=== PATIENT | male | born 1960 | race Caucasian/White ===

== ENCOUNTER → 2019-05-15 | Outpatient (CLI) | payer BC ==
--- NOTE | 2019-05-16 09:36 | US ---
EXAMINATION TYPE: US carotid duplex BILAT DATE OF EXAM: 05/15/2019 COMPARISON: NONE CLINICAL HISTORY: slurred speech R47.81, dizziness R42. EXAM MEASUREMENTS: RIGHT: Peak Systolic Velocity (PSV) cm/sec ----- Right CCA: 78.7cm ----- Right ICA: 117.3 ----- Right ECA: 135.0 ICA/CCA ratio: 1.5 RIGHT: End Diastole cm/sec ----- Right CCA: 20.4 ----- Right ICA: 28.4 ----- Right ECA: 20.4 LEFT: Peak Systolic Velocity (PSV) cm/sec ----- Left CCA: 90.7 ----- Left ICA: 76.4 ----- Left ECA: 121.1 ICA/CCA ratio: 0.8 LEFT: End Diastole cm/sec ----- Left CCA: 29.9 ----- Left ICA: 30.5 ----- Left ECA: 17.4 VERTEBRALS (direction of flow): Right Vertebral: Antegrade Left Vertebral: Antegrade Rhythm: Normal Mild to moderate plaque seen bilaterally, no significant velocity elevations. IMPRESSION: No evidence for hemodynamically significant stenosis. Criteria for Assigning % of Stenosis / Diameter reduction (Estimation based on the indirect measurements of the internal carotid artery velocities (ICA PSV). 1. Normal (no stenosis)=ICA PSV < 125 cm/s: ratio < 2.0: ICA EDV<40 cm/s. 2. Less than 50% stenosis=ICA PSV < 125 cm/s: ratio < 2.0: ICA EDV<40 cm/s. 3. 50 to 69% stenosis=ICA PSV of 125 to 230 cm/s: ration 2.0 ? 4.0: ICA EDV 40-100 cm/s. 4. Greater than 70% stenosis to near occlusion= ICA PSV > 230 cm/s: ratio > 4.0: ICA EDV > 100 cm/s. 5. Near occlusion= ICA PSV velocities may be low or undetectable: variable ratio and ICA EDV. 6. Total occlusion=unable to detect flow.
== END | disposition home or self-care (01) ==
LOC: RADUSWWP 16:42
PROVIDERS: ATTEND Family Medicine
DX: R47.81 Slurred speech (principal)
CPT/HCPCS: 93880

== ENCOUNTER → 2019-05-18 | Outpatient (CLI) | payer BC ==
--- NOTE | 2019-05-18 21:44 | MR ---
MR brain without contrast HISTORY: Slurred speech and bilateral hearing loss Multiplanar multisequence imaging through the brain No comparisons There is no restricted diffusion. There is no hemorrhage or hydrocephalus. Brain signal is maintained . There are normal vascular flow voids. There is extensive abnormal increased signal on T2-weighted s equences throughout the mastoid air cells bilaterally, there is mucoperiosteal thickening present wit hin the maxillary sinuses, ethmoid air cells and frontal sinus. Cerebellopontine angles, corpus callo sum, cervical medullary junction are normal. There is a partially empty sella. The orbits show symmet lindsey appearance. IMPRESSION: Bilateral mastoiditis suspected, temporal bone CT may be of benefit. Sinus disease. No ev ident subacute ischemia.
== END | disposition home or self-care (01) ==
LOC: RADMRIMAIN 20:44
PROVIDERS: ATTEND Family Medicine
DX: R47.81 Slurred speech (principal)
CPT/HCPCS: 70551

== ENCOUNTER → 2019-06-01 | Outpatient (CLI) | payer BC ==
[2019-06-01 16:13] LABS: HCT 47.2 % (39.0-53.0); HGB 15.7 gm/dL (13.0-17.5); MCH 30.2 pg (25.0-35.0); MCHC 33.4 g/dL (31.0-37.0); MCV 90.7 fL (80.0-100.0); Mean Platelet Volume 7.4; Platelet Count 190 k/uL (150-450); RDW 12.7 % (11.5-15.5); WBC 8.8 k/uL (3.8-10.6)
[2019-06-01 16:21] LABS: African American GFR (CKD) >90 (>60 ml/min/1.73 sqM); Anion Gap 8 mmol/L; Blood Urea Nitrogen 13 mg/dL (9-20); Carbon Dioxide 24 mmol/L (22-30); Chloride 108 mmol/L (98-107); Non-African American GFR(CKD) >90 (>60 ml/min/1.73 sqM); Potassium 4.6 mmol/L (3.5-5.1); Sodium 140 mmol/L (137-145)
== END | disposition home or self-care (01) ==
LOC: LABPAT 15:28
PROVIDERS: ATTEND Internal Medicine Cardiovascular Disease
DX: Z01.812 Encounter for preprocedural laboratory examination (principal); R07.2 Precordial pain
CPT/HCPCS: 36415; 80051; 82565; 84520; 85027

== ENCOUNTER 2019-06-10 08:45 | Day surgery (SDC) | payer BC ==
[2019-06-03 14:01] VITALS: BMI 26.9
[~2019-06-10 08:45] MED LIST: ALPRAZolam 0.25 MG TAB PO PRN; ALPRAZolam 0.5 MG TAB PO PRN; ASPIRIN 325 MG TAB PO STA; ATORVASTATIN 80 MG TAB PO STA; NITROGLYCERIN SL TABS 0.4 MG TAB SUBLINGUAL PRN; SODIUM CHLORIDE 0.9% 1,000 ML in EMPTY BAG 1 BAG IV ONE
[2019-06-10] MEDS ORDERED: SODIUM CHLORIDE 0.9% 1,000 ML IV ONE (09:30)
[2019-06-10] MEDS ORDERED: LIDOCAINE 1% INJ 10MG/ML (20 ML MDV) ONE ×2 (11:18→14:03)
[2019-06-10] MEDS ORDERED: LIDOCAINE 1% INJ 10MG/ML (20 ML MDV) SQ ONE (11:35)
[2019-06-10] MEDS ORDERED: HEPARIN SODIUM 1,000 UN/ML (10ML VL) ONE (12:01)
[2019-06-10] MEDS ORDERED: IOPAMIDOL-370 125ML BTL INJ ONE (12:14)
--- NOTE | 2019-06-10 13:06 | CC ---
CARDIAC CATHETERIZATION REPORT INDICATION: Chest pain with abnormal stress test. PROCEDURE NOTE: After obtaining informed consent, left heart catheterization and coronary angiogram were performed via the right femoral artery using standard Saad catheters. Patient tolerated the procedure well without any obvious immediate complications. Patient received moderate conscious sedation and total sedation time was 22 minutes. FINDINGS: 1. HEMODYNAMICS: Left ventricular end-diastolic pressure is 8 to 12 mm there is no significant gradient across the aortic valve. 2. LEFT VENTRICULOGRAM: Left ventriculogram is not performed. 3. ANGIOGRAPHIC DATA. LEFT MAIN CORONARY ARTERY: Left main coronary artery is a normal-sized vessel and is free of stenosis. It divides into left anterior descending coronary artery and circumflex coronary artery. LAD shows irregular ectatic and aneurysmal changes in the proximal part and just distal to it. There is a focal 80%-90% stenosis. Circumflex coronary artery is a nondominant vessel with a large caliber vessel that has a focal 70% stenosis. Both the vessels appear calcified. Right coronary artery is a large dominant vessel that shows a moderate area of atherosclerotic plaque in the midportion and distally there is a focal 90% stenosis. CONCLUSION: Three-vessel coronary artery disease as described above. PLAN: I reviewed angiographic data with the patient and talked to him about his treatment options including surgical and catheter-based revascularization and optimal medical therapy. The pros and cons of each of these approaches has been discussed at length with the patient, who has not received any sedation. Understanding all the issues, he decided to undergo multivessel angioplasty. Patient will have an LAD stent and RCA stent and will be treated with medications for the circumflex lesion and if necessary, bring him back and do angioplasty of the circumflex coronary artery. MMODL / IJN: [id number] /
--- NOTE | 2019-06-10 13:12 | LTR ---
DATE OF SERVICE: 06/10/2019 RE: Dionisio Fairchild Dear Padmaja; I performed cardiac catheterization on Dionisio Fairchild. A detailed catheterization note is enclosed for your records. In brief, cardiac catheterization revealed redding 3 vessel coronary artery disease and patient will undergo multivessel angioplasty. Thank you for giving us the privilege to participate in this pleasant gentleman. Sincerely yours, MD DEYSI Weaver / MCKAY: [id number] /
[2019-06-10] MEDS ORDERED: BIVALIRUDIN BOLUS 250 MG/50 ML IV ONE (14:20)
[2019-06-10] MEDS ORDERED: CLOPIDOGREL 75 MG TAB ONE (14:21)
[2019-06-10] MEDS ORDERED: CLOPIDOGREL 75 MG TAB PO ONE (14:22)
[2019-06-10] MEDS ORDERED: BIVALIRUDIN 250 MG in SODIUM CHLORIDE 0.9% 50 ML IV ONE (14:23)
[2019-06-10] MEDS ORDERED: IV FLUID CONTINUATION 800 ML IV ONE (14:23)
[2019-06-10] MEDS: NITROGLYCERIN 1000MCG/10ML SYRINGE INTRACORON ONE ×3 (14:32→15:03)
[2019-06-10] MEDS ORDERED: IOPAMIDOL-370 100ML BTL INJ ONE ×2 (14:50→15:04)
[2019-06-10] MEDS ORDERED: ATROPINE SULFATE 0.1 MG/ML 10ML SYRINGE IV PRN (15:38)
[2019-06-10] MEDS ORDERED: ZOLPIDEM 5 MG TAB PO PRN (15:38)
[2019-06-10] MEDS ORDERED: MAG HYDROX/AL HYDROX/SIMETH 30 ML CUP PO PRN (15:38)
[2019-06-10] MEDS ORDERED: RX INFO: IV CONTRAST WAS GIVEN 1 EACH MISC MISCELLANE PRN (15:38)
[2019-06-10] MEDS ORDERED: ATORVASTATIN 80 MG TAB PO SCH (21:00)
[2019-06-10] MEDS ORDERED: METOPROLOL TARTRATE 25 MG TAB PO SCH (21:00)
--- NOTE | 2019-06-10 22:15 | PTCA ---
PERCUTANEOUSTRANS CORORONARY ANGIOGRAPHY DATE OF SERVICE: 06/10/2019 PERFORMING PHYSICIAN: Mookie Arnett MD. PROCEDURES PERFORMED: 1. Successful stenting of the distal right coronary artery using a 3.5 x 15 mm Xience drug-eluting stent with excellent angiographic results and reduction of stenosis from 95% to 0%. 2. Successful stenting of the mid right coronary artery using a 4.0 x 18 mm Xience drug-eluting stent with excellent angiographic results and reduction of stenosis from 70% to 0%. 3. Successful stenting of the mid left anterior descending artery using a 3.5 x 23 mm Xience drug-eluting stent with excellent angiographic results and reduction of stenosis from 80% to 0%. INDICATION: This is a 59-year-old gentleman with hypertension and dyslipidemia who sees Dr. Mckay in the office on a regular basis. He was experiencing symptoms of chest discomfort with exertion concerning for angina. He underwent heart catheterization earlier today by Dr. Mckay and that revealed severe triple-vessel coronary artery disease with focal lesions in the RCA and LAD and lesion in the left circumflex as well. The decision was made for percutaneous coronary intervention. APPROACH: Right common femoral artery. COMPLICATIONS: None. LEVEL OF SEDATION: Moderate, with sedation length of 48 minutes. PROCEDURE DESCRIPTION: Please refer to diagnostic heart catheterization that was performed by Dr. Mckay earlier today. Anticoagulation was initiated using Angiomax after I did change my short sheath for a new short sheath. After that, I did engage the right coronary artery using JR4 guide. The RCA was wired using a run-through wire. After that I did balloon angioplasty of the RCA in the distal portion using 3.0 x 12 mm balloon which was inflated under 14 atmospheres for 20 seconds and subsequently I deployed 3.5 x 15 mm Xience WILL where the stent was positioned under fluoroscopy guidance and deployed under 16 atmospheres for 20 seconds. The following angiogram showed good angiographic results. For the mid RCA, I did direct stenting using 4.0 x 18 mm Xience WILL where the stent was positioned again under fluoroscopy guidance and deployed under 16 atmospheres for 20 seconds. I post dilated the stent using 4 mm NC balloon which was inflated under 20 atmospheres for 15 seconds. The following angiogram showed excellent angiographic results and the procedure on the RCA was completed. I did after that engage the left main using JL4 guide. I did wire it using the same run-through wire I used for the RCA. After that I did balloon angioplasty using 2.5 x 12 mm balloon which was inflated under 18 atmospheres for 20 seconds. After that, I deployed a 3.5 x 23 mm Xience WILL where the stent was positioned under fluoroscopy guidance and deployed under 16 atmospheres for 20 seconds. I did after that post dilate the stent using 3.5 mm NC balloon which was inflated under 18 atmospheres for 20 seconds with the following angiogram showing excellent angiographic results and the procedure was completed without any complication. POST-PROCEDURE MANAGEMENT: 1. Dual anti-platelet therapy. 2. Risk factor modifications. 3. Follow up with the patient. MMODL / IJN: [id number] /
[2019-06-11 01:09] VITALS: RESP 18
[2019-06-11 06:11] VITALS: TEMP 98.7
[2019-06-11 07:19] LABS: Basophils % (A) 0 %; Eosinophils # (A) 0.3 k/uL (0-0.7); Eosinophils % (A) 3 %; HCT 44.9 % (39.0-53.0); HGB 15.4 gm/dL (13.0-17.5); Lymphocytes # (A) 2.1 k/uL (1.0-4.8); Lymphocytes % (A) 22 %; MCH 30.7 pg (25.0-35.0); MCHC 34.4 g/dL (31.0-37.0); Mean Platelet Volume 7.4; Monocytes # (A) 0.5 k/uL (0-1.0); Monocytes % (A) 5 %; Neutrophils # (A) 6.5 k/uL (1.3-7.7); Neutrophils % (A) 68 %; Platelet Count 181 k/uL (150-450); RBC 5.04 m/uL (4.30-5.90); RDW 12.7 % (11.5-15.5); WBC 9.6 k/uL (3.8-10.6)
[2019-06-11 07:29] LABS: African American GFR (CKD) >90 (>60 ml/min/1.73 sqM); Anion Gap 7 mmol/L; Blood Urea Nitrogen 12 mg/dL (9-20); Calcium 8.7 mg/dL (8.4-10.2); Carbon Dioxide 24 mmol/L (22-30); Chloride 107 mmol/L (98-107); Glucose 90 mg/dL (74-99); Non-African American GFR(CKD) >90 (>60 ml/min/1.73 sqM); Potassium 4.2 mmol/L (3.5-5.1); Sodium 138 mmol/L (137-145)
[2019-06-11 08:33] VITALS: BP 140/87; PULSE 80
[2019-06-11] MEDS: SODIUM CHLORIDE 0.9% 1,000 ML IV SCH (08:55)
[2019-06-11] MEDS ORDERED: ASPIRIN 325 MG TAB PO SCH (09:00)
[2019-06-11] MEDS ORDERED: LISINOPRIL 20 MG TAB PO SCH (09:00)
--- NOTE | 2019-06-11 14:43 | P.DS ---
Providers Attending physician: Sidney Mckay Consults: 06/10/19 15:38 Consult Physician Routine Consulting Provider: [facility] Consult Reason/Comments: Post Interventional patient Do you want consulting provider notified?: Already Contacted Primary care physician: Padmaja Juarez [facility] Course: This is a pleasant 59-year-old male who came to the hospital electively yesterday for cardiac catheterization secondary to chest pain with abnormal stress test. Stress test revealed triple-vessel coronary artery disease with a focal lesion of the LAD, 70% stenosis of the circumflex and 90% plaque in the mid RCA and 90% distally. He underwent PCI of the LAD and RCA per Dr. Arnett. He was initiated on dual anti-platelet therapy. Seen and examined this morning resting comfortably in bed in no acute distress. He denies chest pain, shortness of breath, palpitations or dizziness. Blood pressure 140/87 heart rate 80 afebrile and maintaining oxygen saturation on room air. Laboratory data reviewed, WBC 9.6, hgb 15.4, plt 181, sodium 138, potassium 4.2 and creatinine 0.93. Repeat EKG this morning reveals sinus mechanism with non-specific ST abnormalities. No acute changes. GENERAL: Well-appearing, well-nourished and in no acute distress. NECK: Supple without JVD or thyromegaly. LUNGS: Breath sounds clear to auscultation bilaterally. Respiration equal and unlabored. No wheezes, rales or rhonchi. HEART: Regular rate and rhythm without murmurs, rubs or gallops. S1 and S2 heard. EXTREMITIES: Normal range of motion, no edema. No clubbing or cyanosis. Peripheral pulses intact. Right femoral access site clean, dry and intact. No hematoma, bleeding, ecchymosis or tenderness. ASSESSMENT Multi-vessel coronary artery disease s/p PCI RCA and LAD Hypertension Dyslipidemia Hypertension Chronic nicotine dependence PLAN Recommend increasing atorvastatin to 80 mg daily. Initiated on plavix 75 mg daily and lopressor 25 mg BID. Continue aspirin 81 mg daily and enalapril 10 mg BID. Follow up in the office with Dr. Mckay next week. Nurse Practitioner note has been reviewed, I agree with a documented findings and plan of care. Patient was seen and examined. Patient Condition at Discharge: Stable Plan - Discharge Summary Discharge Rx Participant: Yes New Discharge Prescriptions: New Atorvastatin [Lipitor] 80 mg PO HS #90 tab Metoprolol Tartrate [Lopressor] 25 mg PO BID #180 tab Clopidogrel [Plavix] 75 mg PO DAILY #90 tab Continue Cholecalciferol [Vitamin D3 (25 Mcg = 1000 Iu)] 2,000 unit PO DAILY Enalapril [Vasotec] 10 mg PO BID Aspirin [Adult Low Dose Aspirin EC] 81 mg PO DAILY Discontinued Atorvastatin Calcium [Lipitor] 20 mg PO DAILY Discharge Medication List Aspirin [Adult Low Dose Aspirin EC] 81 mg PO DAILY 06/03/19 [History] Cholecalciferol [Vitamin D3 (25 Mcg = 1000 Iu)] 2,000 unit PO DAILY 06/03/19 [History] Enalapril [Vasotec] 10 mg PO BID 06/03/19 [History] Atorvastatin [Lipitor] 80 mg PO HS #90 tab 06/11/19 [Rx] Clopidogrel [Plavix] 75 mg PO DAILY #90 tab 06/11/19 [Rx] Metoprolol Tartrate [Lopressor] 25 mg PO BID #180 tab 06/11/19 [Rx] Follow up Appointment(s)/Referral(s): Sidney Mckay MD [STAFF PHYSICIAN] - 06/16/19 4:15 pm (Saturday -previously scheduled appointment) Patient Instructions/Handouts: *[facility] - After Heart Catheterization - [facility] Instructions, Left Heart Catheterization (DC) Discharge Disposition: HOME SELF-CARE
[2019-06-11] MEDS ORDERED: CLOPIDOGREL 75 MG TAB PO SCH (15:39)
== END 2019-06-11 08:45 | disposition home or self-care (01) ==
LOC: CATHCVL 08:45 → 3SCARD 16:56 → CATHCVL 06-11 08:45
PROVIDERS: ATTEND Internal Medicine Cardiovascular Disease
DX: I25.110 Atherosclerotic heart disease of native coronary artery with unstable angina pectoris (principal); I25.41 Coronary artery aneurysm; I10 Essential (primary) hypertension; E78.5 Hyperlipidemia, unspecified; F17.210 Nicotine dependence, cigarettes, uncomplicated; I73.9 Peripheral vascular disease, unspecified; Z82.49 Family history of ischemic heart disease and other diseases of the circulatory system; Z79.899 Other long term (current) drug therapy; Z79.82 Long term (current) use of aspirin; Z88.8 Allergy status to other drugs, medicaments and biological substances
CPT/HCPCS: 80048; 85025; 93458; 92928 ×2; C9600; C1769 ×3; C1887 ×2; C1725 ×4; C1894; C1874; J2001; J0583; Q9967 ×2

== ENCOUNTER → 2019-08-15 | Outpatient (CLI) | payer BC ==
[2019-08-15 18:40] LABS: Chol/HDL Ratio 4.67; LDL Cholesterol,Calculated 80.6 mg/dL (0.0-131.0); VLDL Calculation 29.4 mg/dL (5.00-40.00)
== END | disposition home or self-care (01) ==
LOC: LABWHC1 08:52
PROVIDERS: ATTEND Internal Medicine Cardiovascular Disease
DX: E78.2 Mixed hyperlipidemia (principal)
CPT/HCPCS: 36415; 80061; 84450; 84460

== ENCOUNTER → 2020-05-05 | Outpatient (CLI) | payer BC ==
--- NOTE | 2020-05-05 16:51 | MR ---
MRI CERVICAL SPINE: CLINICAL HISTORY: Headaches with neck pain causing pain or numbness into left arm per patient. TECHNIQUE: Multiplanar, multisequence imaging of the cervical spine is performed without IV contrast. COMPARISON: None. FINDINGS: Sagittal images of the cervical spine show the craniocervical junction to appear within nor mal limits. The cervical and upper thoracic spinal cord is normal in caliber and signal. There is sl ight grade 1 anterolisthesis of C2 on C3 and C3 on C4. There is grade 1 retrolisthesis C5 on C6. The vertebral body heights are normal. Moderate to advanced disc space narrowing with heterogeneous Soraida c type I endplate changes and moderate spurring C5-C6 level. Axial images at C2-C3 level shows uncovertebral facet degenerative changes bilaterally causing modera te right and mild left-sided neural foraminal narrowing. Axial images at C3-C4 level show uncovertebral facet degenerative changes bilaterally causing moderat e right and mild left-sided neural foraminal narrowing. Axial images at C4-C5 levels are broad-based posterior disc protrusion effacing anterior thecal sac, there is mild to moderate bilateral neural foraminal narrowing noted. Axial images at C5-C6 levels. Spondylolisthesis with broad-based posterior disc protrusion effacing a nterior thecal sac of the ventral surface of spinal cord with moderate to severe bilateral neural for aminal narrowing. Axial images at C6-C7 levels a left paracentral/foraminal disc protrusion effacing anterolateral thec al sac and causing moderate left-sided neural foraminal narrowing. Axial images at C7-T1 level appear within normal limits. IMPRESSION: Multilevel degenerative changes greatest at C5-C6 level as detailed above.
== END | disposition home or self-care (01) ==
LOC: RADMRIMAIN 16:03
PROVIDERS: ATTEND Family Medicine
DX: M47.892 Other spondylosis, cervical region (principal)
CPT/HCPCS: 72141

== ENCOUNTER → 2020-08-08 | Outpatient (CLI) | payer BC ==
[2020-08-08 15:13] LABS: African American GFR (CKD) >90 (>60 ml/min/1.73 sqM); Anion Gap 10 mmol/L; Blood Urea Nitrogen 16 mg/dL (9-20); Carbon Dioxide 27 mmol/L (22-30); Chloride 102 mmol/L (98-107); Non-African American GFR(CKD) >90 (>60 ml/min/1.73 sqM); Potassium 4.2 mmol/L (3.5-5.1); Sodium 139 mmol/L (137-145)
[2020-08-08 15:23] LABS: HCT 48.3 % (39.0-53.0); HGB 16.8 gm/dL (13.0-17.5); MCH 30.8 pg (25.0-35.0); MCHC 34.7 g/dL (31.0-37.0); MCV 88.8 fL (80.0-100.0); Mean Platelet Volume 8.9; Platelet Count 173 k/uL (150-450); RBC 5.44 m/uL (4.30-5.90); RDW 12.8 % (11.5-15.5)
== END | disposition home or self-care (01) ==
LOC: LABPAT 14:07
PROVIDERS: ATTEND Internal Medicine Cardiovascular Disease
DX: Z01.818 Encounter for other preprocedural examination (principal); I20.0 Unstable angina
CPT/HCPCS: 36415; 80051; 82565; 84520; 85027

== ENCOUNTER 2020-08-09 07:32 | Day surgery (SDC) | payer BC ==
[2020-08-09] MEDS ORDERED: ASPIRIN 81 MG ONE (07:40)
[2020-08-09] MEDS ORDERED: LIDOCAINE 1% INJ 10MG/ML (20 ML MDV) ONE (07:46)
[2020-08-09] MEDS ORDERED: fentaNYL (PF) 50 MCG/ML 2 ML AMP ONE (08:04)
[2020-08-09] MEDS ORDERED: LIDOCAINE 1% INJ 10MG/ML (20 ML MDV) SQ ONE (08:11)
[2020-08-09] MEDS ORDERED: HEPARIN SODIUM 1,000 UN/ML (10ML VL) ONE (08:47)
[2020-08-09] MEDS: HEPARIN SODIUM 1,000 UN/ML (10ML VL) IV ONE ×2 (08:49→09:01)
[2020-08-09] MEDS ORDERED: IOPAMIDOL-370 125ML BTL INJ ONE ×2 (09:20→09:38)
[2020-08-09] MEDS ORDERED: NITROGLYCERIN 1000MCG/10ML SYRINGE INTRACORON ONE (09:32)
--- NOTE | 2020-08-09 09:38 | CC ---
CARDIAC CATHETERIZATION REPORT INDICATION: Unstable angina. PROCEDURE NOTE: After obtaining informed consent, left heart catheterization and coronary angiogram are performed via the right femoral artery using standard Saad catheters. The patient tolerated the procedure well without any obvious immediate complications. The patient received moderate conscious sedation. Total sedation time was 15 minutes. FINDINGS: 1. HEMODYNAMICS: Left ventricular end-diastolic pressure is 10 mm. There is no significant gradient across the aortic valve. 2. LEFT VENTRICULOGRAM: Left ventriculogram is not performed. 3. ANGIOGRAPHIC DATA: Left Main Coronary Artery: Left main coronary artery is a normal-sized vessel and is free of stenosis. Divides into left anterior descending coronary artery and circumflex coronary artery. LAD was previously stented in the midportion. There is some in-stent restenosis that extends all the way to the proximal part that involves the mid LAD, but there is an area of stenosis even in the proximal LAD. The hemodynamic significance of which is unclear. Circumflex coronary artery is a large codominant system that shows an 80% to 90% stenosis just before the bifurcation. Right coronary artery is a large vessel that was previously stented in the proximal to midportion. The stent is patent. The PDA shows a 50% to 60% stenosis in the ostial portion which remains unchanged. CONCLUSION: Three-vessel coronary artery disease with patent stent in the mid LAD with proximal LAD stenosis. Focal significant stenosis involving circumflex coronary artery and moderate disease involving the ostial portion of the PDA. PLAN: I am going to review angiographic data with Dr. Lanier the available vaccine manager. He will assess the hemodynamic significance of the LAD and if that is significant refer patient to surgery. If it is not, then he will undergo angioplasty of circumflex coronary artery. MMODL / IJN: [id number] /
--- NOTE | 2020-08-09 09:38 | LTR ---
August 09, 2020 Re: Dionisio Fairchild Dear Padmaja: I performed cardiac catheterization on Dionisio Fairchild. A detailed catheterization note is enclosed records. In brief, the cardiac catheterization revealed three-vessel coronary artery disease with significant focal stenosis in circumflex coronary artery with a moderate stenosis involving LAD. We are going to assess the hemodynamic significance of the LAD and if it is not significant then patient will undergo angioplasty of circumflex coronary artery and if the LAD lesion is significant, we may refer him to bypass. Sincerely, MD DEYSI Weaver / MCKAY: [id number] /
[2020-08-09] MEDS ORDERED: NITROGLYCERIN SL TABS 0.4 MG TAB SUBLINGUAL PRN (09:59)
[2020-08-09] MEDS ORDERED: ZOLPIDEM 5 MG TAB PO PRN (09:59)
[2020-08-09] MEDS ORDERED: RX INFO: IV CONTRAST WAS GIVEN 1 EACH MISC MISCELLANE PRN (09:59)
[2020-08-09] MEDS ORDERED: ATROPINE SULFATE 0.1 MG/ML 10ML SYRINGE IV PRN (09:59)
[2020-08-09] MEDS ORDERED: MAG HYDROX/AL HYDROX/SIMETH 30 ML CUP PO PRN (09:59)
--- NOTE | 2020-08-09 09:59 | P.PRCINT ---
Percutaneous Coronary Int. - Percutaneous Coronary Intervention Percutaneous Coronary Intervention: PROCEDURES PERFORMED: Selective left coronary angiography, successful PCI of mid circumflex with a 3.5 x 18 mm Xience WILL, postdilated proximally with a 4.5 x 8 mm noncompliant balloon, Angio-Seal. INDICATION: Unstable angina HISTORY: Patient is a pleasant 60-year-old male with history of hypertension, hyperlipidemia and prior PCI of the [place] LAD and RCA in 2019 who presents with typical anginal type symptoms new in onset over the last week and therefore patient had a diagnostic catheterization performed by my partner and I was asked to evaluate for possible PCI. Patient did have mild to moderate proximal LAD 50% stenosis as well as 50-60% ostial PDA stenosis and a circumflex 80-90% stenosis. PROCEDURE: After the risks, benefits and alternatives of the above mentioned procedure explained in detail with the patient, informed consent was obtained. The decision was made to iFR the LAD as this may increase his Syntax score. A 6Fr sheath had been placed in the right femoral artery using modified Seldinger technique. A 6Fr CLS 4.5 guide catheter was used to engage the left main. A 0.014 iFR guide wire was advanced into the left main, normalized then easily placed in the mid LAD. iFR was performed and was negative at 0.96. Next the wire was advanced into the distal OM1 without difficulty. The lesion was predilated with a 3.0 x 12mm balloon. Next, a 3.5 x 18 mm Xience WILL was advanced with some difficulty secondary to tortuosity requiring the help of a Minor for support. The stent was deployed. The proximal stent was then post dilated with a 4.5 x 8 mm NC balloon. Preintervention there was a 85 % stenosis and SANTOSH 3 flow and post intervention there was 0% residual stenosis and SANTOSH 3 flow without evidence of dissection. The wire was removed and final angiograms were taken. The right radial sheath was removed and a TR band was placed with hemostasis achieved. The patient tolerated the procedure well. Patient was transported back to the post catheterization holding area in stable condition. Conscious Sedation: Patient was monitored under the direct supervision of vision of myself for conscious sedation using Versed and fentanyl for a total duration of 51 minutes HEMODYNAMICS: Aorta: 136/82 SELECTIVE CORONARY ARTERIOGRAPHY: LEFT MAIN: The left main is a large caliber vessel which bifurcates into the LAD and circumflex. There is no significant stenosis. LEFT ANTERIOR DESCENDING CORONARY ARTERY: LAD is a large caliber vessel which wraps around to the apex. There is a proximal LAD 50% stenosis followed by a mid LAD stents with mild 10% in-stent stenosis. iFR of proximal LAD negative at 0.96 LEFT CIRCUMFLEX CORONARY ARTERY: Left circumflex is a large caliber vessel with a mid 70% stenosis followed by a more focal 85% stenosis just before the bifurca tion into to moderate caliber OM branches. RIGHT CORONARY ARTERY: RCA , see diagnostic heart catheterization report FINAL IMPRESSION: 1. Successful PCI of mid circumflex with a 3.5 x 18 mm Xience WILL, postdilated proximally with a 4.5 x 8 mm noncompliant balloon 2. Negative iFR of proximal LAD lesion PLAN: 1. Aggressive risk factor modification per most recent ACC/AHA guidelines. 2. Follow-up in the office in 1-[address] Mckay. 3. Dual antiplatelets for 12 months.
[2020-08-09] MEDS ORDERED: SODIUM CHLORIDE 0.9% 1,000 ML IV SCH (10:00)
[2020-08-09 14:01] VITALS: BMI 26.8
[2020-08-09 22:09] VITALS: RESP 18
[2020-08-10 07:50] LABS: African American GFR (CKD) >90 (>60 ml/min/1.73 sqM); Non-African American GFR(CKD) >90 (>60 ml/min/1.73 sqM)
[2020-08-10] MEDS ORDERED: ASPIRIN 81 MG PO SCH (09:00)
--- NOTE | 2020-08-10 09:22 | DS ---
DISCHARGE SUMMARY DATE OF ADMISSION: 08/09/2020. DATE OF DISCHARGE: 08/10/2020. PROCEDURES PERFORMED: 1. Left heart catheterization. 2. Angioplasty with stent placement of circumflex coronary artery. 3. FFR of the LAD. CLINICAL COURSE: This is a 60-year-old gentleman with history of known coronary artery disease, status post prior angioplasty of LAD and right coronary artery, who presented to me with symptoms of unstable angina with EKG changes. Due to this, I advised him to undergo cardiac catheterization. His cardiac catheterization revealed a patent stent within the LAD and right coronary arteries with nonsignificant proximal LAD disease with an FFR and critical stenosis involving circumflex coronary artery. He went on to have angioplasty with stent placement of the same. This morning, patient is doing well and is free of symptoms. He denies any chest pain, difficulty in breathing, palpitations, dizziness or syncope. PHYSICAL EXAMINATION: On exam, comfortable at rest. Vital signs are stable. Chest exam reveals good air entry bilaterally. Heart exam reveals first and second heart sounds. No gallop. Examination of extremities did not reveal any edema. Peripheral pulses are felt. Groin is free of bleeding, bruit, hematoma. Foot pulses are intact. LABS: Creatinine is normal at 0.8. DISCHARGE MEDICATIONS: He will go home on aspirin, Plavix, Lipitor, Vasotec, Lopressor, and sublingual nitroglycerin. FOLLOWUP: He will be followed up in my office in a week's time. DEYSI / MCKAY: [id number] /
[2020-08-10 09:45] VITALS: BP 136/79; PULSE 74; TEMP 97.6
[2020-08-10] MEDS ORDERED: CLOPIDOGREL 75 MG TAB PO SCH (10:00)
== END 2020-08-10 10:29 | disposition home or self-care (01) ==
LOC: CATHCVL 07:32 → 3SCARD 09:45 → CATHCVL 08-10 10:29
PROVIDERS: ATTEND Internal Medicine Cardiovascular Disease
DX: I25.110 Atherosclerotic heart disease of native coronary artery with unstable angina pectoris (principal); T82.855A Stenosis of coronary artery stent, initial encounter; Z95.5 Presence of coronary angioplasty implant and graft; I10 Essential (primary) hypertension; E78.2 Mixed hyperlipidemia; I73.9 Peripheral vascular disease, unspecified; Z72.0 Tobacco use; Z79.82 Long term (current) use of aspirin; Z79.02 Long term (current) use of antithrombotics/antiplatelets; Z88.8 Allergy status to other drugs, medicaments and biological substances; Z82.3 Family history of stroke; Z82.49 Family history of ischemic heart disease and other diseases of the circulatory system
CPT/HCPCS: 93571; 93458; 85347; 82565; C9600; C1769 ×2; C1760; C1887 ×2; C1725 ×3; C1894; C1874; J2001; J1644; Q9967

== ENCOUNTER → 2020-08-25 | Outpatient (CLI) | payer BC ==
--- NOTE | 2020-08-26 00:02 | CT ---
EXAMINATION TYPE: CT brain wo con DATE OF EXAM: 08/25/2020 HISTORY: headaches, dizziness CT DLP: 1064.3 mGycm. Automated Exposure Control for Dose Reduction was Utilized. TECHNIQUE: CT scan of the head is performed without contrast. COMPARISON: MRI brain May 18, 2019. FINDINGS: There is no acute intracranial hemorrhage or midline shift identified. Ventricles and sul ci within normal limits in size for patient's age. Duarte-white matter differentiation fairly well main tained. Mild mucosal thickening involving ethmoid sinuses bilaterally.. Visualized Globes are intact. Completely opacified mastoid air cells bilaterally redemonstrated. Abnormal soft tissue surrounds th e middle ear ossicles bilaterally right greater than left. IMPRESSION: Bilateral mastoiditis with middle ear infection redemonstrated right worse than left. Cor relate clinically.
== END | disposition home or self-care (01) ==
LOC: RADCTMAIN 18:14
PROVIDERS: ATTEND Family Medicine
DX: H66.93 Otitis media, unspecified, bilateral (principal); H70.93 Unspecified mastoiditis, bilateral
CPT/HCPCS: 70450

== ENCOUNTER → 2020-09-05 | Outpatient (CLI) | payer BC ==
--- NOTE | 2020-09-06 17:09 | US ---
EXAMINATION TYPE: US carotid duplex BILAT DATE OF EXAM: 09/05/2020 COMPARISON: US, CT, MR CLINICAL HISTORY: R09.89 CAROTID BRUIT,R51,HEADACHE,R42 DIZZINESS. Dizziness and headache. Hx smoker, hypertension, hyperlipidemia. EXAM MEASUREMENTS: RIGHT: Peak Systolic Velocity (PSV) cm/sec ----- Right CCA: 77.6 ----- Right ICA: 107.1 ----- Right ECA: 120.0 ICA/CCA ratio: 1.4 RIGHT: End Diastole cm/sec ----- Right CCA: 21.5 ----- Right ICA: 29.6 ----- Right ECA: 15.0 LEFT: Peak Systolic Velocity (PSV) cm/sec ----- Left CCA: 92.4 ----- Left ICA: 86.1 ----- Left ECA: 121.2 ICA/CCA ratio: 0.9 LEFT: End Diastole cm/sec ----- Left CCA: 25.6 ----- Left ICA: 42.1 ----- Left ECA: 19.0 VERTEBRALS (direction of flow): Right Vertebral: Antegrade Left Vertebral: Antegrade Rhythm: Normal No elevated velocities at this time. Intimal thickening seen bilaterally. Hyperechoic plaque seen tad ateral carotid bulbs. No elevated velocities to suggest narrowing greater than 50% is evident. -Hypoechoic area seen with hyperechoic center within the right neck: 1.8 x 1.1 x 0.5 cm. -Hypoechoic area seen with hyperechoic center within the left neck: 0.9 x 0.5 x 0.5 cm. Findings are compatible with bilateral neck lymph nodes. IMPRESSION: 1. Bilateral atheromatous plaques without significant flow-limiting stenosis. Criteria for Assigning % of Stenosis / Diameter reduction (Estimation based on the indirect measurements of the internal carotid artery velocities (ICA PSV). 1. Normal (no stenosis)=ICA PSV < 125 cm/s: ratio < 2.0: ICA EDV<40 cm/s. 2. Less than 50% stenosis=ICA PSV < 125 cm/s: ratio < 2.0: ICA EDV<40 cm/s. 3. 50 to 69% stenosis=ICA PSV of 125 to 230 cm/s: ration 2.0 ? 4.0: ICA EDV 40-100 cm/s. 4. Greater than 70% stenosis to near occlusion= ICA PSV > 230 cm/s: ratio > 4.0: ICA EDV > 100 cm/s. 5. Near occlusion= ICA PSV velocities may be low or undetectable: variable ratio and ICA EDV. 6. Total occlusion=unable to detect flow.
== END ==
LOC: RADUSWWP 16:35
PROVIDERS: ATTEND Family Medicine
DX: I65.23 Occlusion and stenosis of bilateral carotid arteries (principal); I10 Essential (primary) hypertension; Z87.891 Personal history of nicotine dependence
CPT/HCPCS: 93880

== ENCOUNTER → 2021-01-02 | Outpatient (CLI) | payer BC ==
--- NOTE | 2021-01-03 01:56 | MR ---
EXAMINATION TYPE: MR cervical spine wo con DATE OF EXAM: 01/02/2021 COMPARISON: 05/05/2020 HISTORY: Neck pain, left arm numbness. Multiplanar multiecho imaging of the cervical spine was performed without contrast. There is some mild straightening of the mid cervical spine. There is degenerative disc space narrowin g at C5-6 with spurring of the endplates. There is mild narrowing of the other cervical disc spaces. There is no compression fracture. There is small posterior disc herniation at C4-5 and C5-6. Spinal c anal is narrowed to 6.5 mm at C5-6. The canal measures 7.5 mm at C4-5. There is some flattening of th e cervical cord at C5-6. There is uncovertebral spurring and bilateral neural foraminal narrowing at C5-6. At C4-5 there is also some bilateral neural foraminal narrowing due to uncovertebral spur forma tion. There is very subtle linear increased signal within the cervical cord at C4-5 and C5-6 level. IMPRESSION: There is some spinal stenosis at C4-5 and C5-6 as above with some flattening the cord. There is neura l foraminal bilateral narrowing. There is subtle linear increased signal in the cervical cord suggest gauri of developing myelomalacia.
--- NOTE | 2021-01-03 02:16 | MR ---
EXAMINATION TYPE: MR angio head wo/neck wo/w con DATE OF EXAM: 01/02/2021 COMPARISON: None HISTORY: Dizziness CONTRAST: Standard multiplanar, multisequence MRI departmental protocol utilizing 9.5 mL intravenous Gadavist g adolinium contrast. There are 3-D post processed images. There is arterial flow in the anterior middle and posterior cerebral arteries. There is arterial flow in the vertebrobasilar artery system. There is no mass effect. I see no sign of intracranial aneurys m or neovascularity. There is no evidence of hemodynamic stenosis. There is arterial flow in the common internal and external carotid arteries bilaterally. There is olamide e smooth plaque formation on the posterior wall of the internal carotid arteries bilaterally near the bifurcations. Lumen narrowing is estimated 35% on the right side and 25% on the left side. There is no sign of carotid or vertebral artery aneurysm or dissection. IMPRESSION: No intracranial angiographic abnormality. Mild plaque formation at the carotid artery bifurcations with no hemodynamic stenosis.
== END | disposition home or self-care (01) ==
LOC: RADMRIMAIN 16:38
PROVIDERS: ATTEND Family Medicine
DX: I65.23 Occlusion and stenosis of bilateral carotid arteries (principal); M48.02 Spinal stenosis, cervical region; M99.71 Connective tissue and disc stenosis of intervertebral foramina of cervical region
CPT/HCPCS: 70544; 70549; 72141; A9585

== ENCOUNTER → 2021-01-20 | Outpatient (CLI) | payer BC | END | disposition home or self-care (01) | LOC: RADECHMAIN 12:59 | PROVIDERS: ATTEND Family Medicine | DX: R00.2 Palpitations (principal) | CPT/HCPCS: 93225; 93226 ==

== ENCOUNTER → 2021-01-21 | Outpatient (CLI) | payer BC ==
[2021-01-21 18:15] LABS: Chol/HDL Ratio 3.83
== END | disposition home or self-care (01) ==
LOC: LABWHC1 11:10
PROVIDERS: ATTEND Internal Medicine Cardiovascular Disease
DX: E78.2 Mixed hyperlipidemia (principal)
CPT/HCPCS: 36415; 80061; 84450; 84460

== ENCOUNTER → 2021-04-04 | Outpatient (CLI) | payer BC ==
[2021-04-05 02:25] LABS: Hemoglobin A1C 5.9 % (4.0-6.0)
== END | disposition home or self-care (01) ==
LOC: LABWHC1 16:06
PROVIDERS: ATTEND Family Medicine
DX: R73.03 Prediabetes (principal)
CPT/HCPCS: 36415; 83036; 86769

== ENCOUNTER → 2021-06-23 | Outpatient (CLI) | payer BC ==
[2021-06-24 00:41] LABS: ALT 27 U/L (10-49); AST 30 U/L (14-35); African American GFR (CKD) 104.2 (60.0-200.0); BUN/Creat Ratio 11.43 Ratio (12.00-20.00); Blood Urea Nitrogen 10.6 mg/dL (9.0-27.0); Calcium 9.4 mg/dL (8.7-10.3); Carbon Dioxide 21.5 mmol/L (20.0-27.5); Chloride 104 mmol/L (96-109); Chol/HDL Ratio 4.31 Ratio; Glucose 95 mg/dL (70-110); LDL Cholesterol,Calculated 80.6 mg/dL (0.0-131.0); Non-African American GFR(CKD) 89.9 (60.0-200.0); Potassium 4.1 mmol/L (3.5-5.5); Sodium 140 mmol/L (135-145); VLDL Calculation 18.48 mg/dL (5.00-40.00)
== END | disposition home or self-care (01) ==
LOC: LABWHC1 14:54
PROVIDERS: ATTEND Internal Medicine Cardiovascular Disease
DX: I10 Essential (primary) hypertension (principal); I25.10 Atherosclerotic heart disease of native coronary artery without angina pectoris; E78.2 Mixed hyperlipidemia
CPT/HCPCS: 36415; 80048; 80061; 84450; 84460

== ENCOUNTER → 2021-12-23 | Outpatient (CLI) | payer BC ==
[2021-12-23 17:27] LABS: Basophils # (A) 0.08 X 10*3/uL (0.00-0.10); Basophils % (A) 0.9 %; Eosinophils # (A) 0.18 X 10*3/uL (0.04-0.35); Eosinophils % (A) 2.1 %; HCT 48.5 % (39.6-50.0); HGB 15.7 g/dL (13.0-17.0); Immature Grans, Automated 0.3 %; Lymphocytes # (A) 2.01 X 10*3/uL (0.90-5.00); Lymphocytes % (A) 23.3 %; MCH 29.7 pg (27.0-32.0); MCHC 32.4 g/dL (32.0-37.0); MCV 91.9 fL (80.0-97.0); Mean Platelet Volume 12.7 fL (9.5-12.2); Monocytes # (A) 0.52 X 10*3/uL (0.20-1.00); NRBC Per 100 WBC 0 /100 WBCS (0.0-0.0); Neutrophils # (A) 5.79 X 10*3/uL (1.80-7.70); Neutrophils % (A) 67.4 %; Platelet Count 160 X 10*3/uL (140-440); RBC 5.28 X 10*6/uL (4.40-5.60); RDW 13.5 % (11.5-14.5); WBC 8.61 X 10*3/uL (4.50-10.00)
[2021-12-23 18:07] LABS: ALT 37 U/L (10-49); AST 35 U/L (14-35); Albumin 4.2 g/dL (3.8-4.9); Albumin/Globulin Ratio 1.75 (1.60-3.17); Alkaline Phosphatase 89 U/L (41-126); BUN/Creat Ratio 14.33 Ratio (12.00-20.00); Blood Urea Nitrogen 12.9 mg/dL (9.0-27.0); Calcium 8.9 mg/dL (8.7-10.3); Carbon Dioxide 22.6 mmol/L (20.0-27.5); Chloride 106 mmol/L (96-109); Chol/HDL Ratio 4.65 Ratio; Globulin 2.4 g/dL (1.6-3.3); Glucose 93 mg/dL (70-110); LDL Cholesterol,Calculated 80.2 mg/dL (0.0-131.0); Non-African American GFR(CKD) 93.2 (60.0-200.0); Potassium 4.2 mmol/L (3.5-5.5); Sodium 139 mmol/L (135-145); Total Protein 6.6 g/dL (6.2-8.2)
== END | disposition home or self-care (01) ==
LOC: LABWHC1 09:17
PROVIDERS: ATTEND Internal Medicine
DX: I25.10 Atherosclerotic heart disease of native coronary artery without angina pectoris (principal); R73.03 Prediabetes
CPT/HCPCS: 36415; 80053; 80061; 83036; 85025

== ENCOUNTER → 2022-04-02 | Outpatient (CLI) | payer BC ==
--- NOTE | 2022-04-03 10:13 | XR ---
EXAMINATION TYPE: XR chest 2V DATE OF EXAM: 04/02/2022 COMPARISON: None HISTORY: Dyspnea TECHNIQUE: Frontal and lateral views of the chest are obtained. FINDINGS: There is no focal air space opacity, pleural effusion, or pneumothorax seen. The cardiac silhouette size is within normal limits. The aorta is dense. The osseous structures are intact. IMPRESSION: No acute cardiopulmonary process.
== END | disposition home or self-care (01) ==
LOC: RADXRMAIN 17:57
PROVIDERS: ATTEND Internal Medicine
DX: R06.00 Dyspnea, unspecified (principal)
CPT/HCPCS: 71046

== ENCOUNTER → 2022-07-04 | Outpatient (CLI) | payer BC ==
[2022-07-04 22:14] LABS: Chol/HDL Ratio 4.89 Ratio; LDL Cholesterol,Calculated 97.1 mg/dL (0.0-131.0)
[2022-07-04 22:15] LABS: ALT 20 U/L (10-49); AST 30 U/L (14-35)
== END | disposition home or self-care (01) ==
LOC: LABWHC1 09:54
PROVIDERS: ATTEND Internal Medicine Cardiovascular Disease
DX: E78.2 Mixed hyperlipidemia (principal)
CPT/HCPCS: 36415; 80061; 84450; 84460

== ENCOUNTER → 2023-01-12 | Outpatient (CLI) | payer BC ==
[2023-01-12 23:35] LABS: ALT 27 U/L (10-49); AST 26 U/L (14-35); Chol/HDL Ratio 3.95 Ratio; LDL Cholesterol,Calculated 63.6 mg/dL (0.0-131.0); VLDL Calculation 17.84 mg/dL (5.00-40.00)
== END | disposition home or self-care (01) ==
LOC: LABWHC1 08:59
PROVIDERS: ATTEND Internal Medicine Cardiovascular Disease
DX: E78.2 Mixed hyperlipidemia (principal)
CPT/HCPCS: 36415; 80061; 84450; 84460

== ENCOUNTER → 2024-01-24 | Outpatient (CLI) | payer BC ==
[2024-01-24 15:41] LABS: ALT 31 U/L (10-49); AST 29 U/L (14-35); Chol/HDL Ratio 3.92 Ratio; LDL Cholesterol,Calculated 77.5 mg/dL (0.0-131.0); VLDL Calculation 14.86 mg/dL (5.00-40.00)
== END | disposition home or self-care (01) ==
LOC: LABWHC1 10:37
PROVIDERS: ATTEND Internal Medicine Cardiovascular Disease
DX: E78.2 Mixed hyperlipidemia (principal)
CPT/HCPCS: 36415; 80061; 84450; 84460